=== PATIENT | male | born 1980 | race Caucasian/White ===

== ENCOUNTER → 2020-02-23 12:57 | Outpatient (CLI) | payer OTHER, SELFPAY ==
[2020-02-15 11:08] VITALS: BMI 31.1
--- NOTE | 2020-02-23 12:58 | MRI_ITS ---
STUDY: MRI CERVICAL SPINE WITHOUT CONTRAST REASON FOR EXAM: Male, 39 years old. radiculopathy, pt fell from ladder 2 mos ago, pain radiating down neck, right shoulder, right arm TECHNIQUE: Standardized fat and water weighted pulse sequences were obtained in the sagittal and axial planes. COMPARISON: None FINDINGS: Normal foramen magnum and brainstem-cervical cord junction. Normal craniovertebral junction. Normal anterior atlantoaxial articulation. Normal odontoid process. Decreased cervical lordosis. Normal vertebral bodies and posterior osseous elements. C2-3: Normal endplates. Normal disc height, signal and morphology. Normal central canal and intervertebral neural foramina. C3-4: Normal endplates. Normal disc height, signal and morphology. Normal central canal and intervertebral neural foramina. C4-5: Normal endplates. Narrowed disc space with a large central disc extrusion with inferior migration of disc fragment narrowing the central canal and compressing the cord.. Normal intervertebral neural foramina. C5-6: Normal endplates. Normal disc height, signal and tiny central disc protrusion. Normal central canal and intervertebral neural foramina. C6-7: Normal endplates. Normal disc height, signal and morphology. Normal central canal and intervertebral neural foramina. C7-T1: Normal endplates. Normal disc height, signal and morphology. Normal central canal and intervertebral neural foramina. Normal cervical cord. Normal visualized soft tissue structures. MRI/Spine Cervical (Routine) IMPRESSION: No evidence for acute fracture or other significant bony pathology. Spinal stenosis and cord compression at C5-6 secondary to a large central disc extrusion with inferior migration of disc fragment Electronically Signed: Woodrow Mandujano MD at 16:06 EST , Service support ,
== END ==
PROVIDERS: PCP Internal Medicine; Referring Provider Internal Medicine; Visit Provider Internal Medicine
DX: M54.12 Radiculopathy, cervical region (principal)
CPT/HCPCS: 72141

== ENCOUNTER → 2020-03-17 08:00 | Outpatient (CLI) | payer OTHER, SELFPAY ==
[2020-03-15 10:46] VITALS: BMI 31.4
[2020-03-17 12:29] LABS: Absolute Neutrophil Count 1.9 X10^3/uL (2.0-7.7); Basophil# 0.01 X10^3/uL; Basophil% 0.3 % (0-1); Eosinophils% 2.7 % (0-5); Hemoglobin 15.2 g/dL (13.0-16.5); Lymphocyte % 35.1 % (19-41); Mean Corpuscular Hgb 29.7 pg (27.0-32.0); Mean Corpuscular Volume 89.8 fL (80-94); Mean Platelet Vol. 11.9 fl (6.2-12.0); Monocyte# 0.36 X10^3/uL; Monocyte% 9.7 % (0-10); NRBC Flagged by Analyzer 0 % (0-5); Neutrophil # 1.93 X10^3/uL (2.7-7.7); Neutrophil % 52.2 % (47-70); Platelet Count 188 K/mm3 (150-450); RBC Distribution Width SD 42.9 fl (35.1-43.9); Red Blood Count 5.12 M/mm3 (4.6-6.2); White Blood Count 3.7 K/mm3 (4.4-11.0)
[2020-03-17 12:56] LABS: ALB/GLOB Ratio 1.3 RATIO (0.9-2.4); AST(SGOT) 14 U/L (15-37); Alanine Aminotransfer ALT/SGPT 33 U/L (16-61); Alkaline Phosphatase 67 U/L (45-117); Anion Gap 3 (5-15); BUN 13 mg/dL (7-18); Calcium,Total 8.7 mg/dL (8.5-10.1); Chloride 107 mmol/L (98-107); Cholesterol 227 mg/dL (200); EST Glomerular Filtration Rate 88 mL/min (>60); Est Glom Filt Rate - Afr Amer 107 mL/min (>60); Glucose 87 mg/dL (74-106); High Density Lipoprotein 42 mg/dL; Sodium Level 139 mmol/L (136-145); Triglycerides 136 mg/dL; Very Low Density Lipoprotein 27 mg/dL (5-40)
== END ==
PROVIDERS: PCP Internal Medicine; Referring Provider Internal Medicine; Visit Provider Internal Medicine
DX: Z13.220 Encounter for screening for lipoid disorders (principal)
CPT/HCPCS: 36415; 80053; 80061; 85025

== ENCOUNTER 2020-05-04 14:46 | Observation (INO) | payer OTHER, SELFPAY ==
[2020-03-06 08:46] VITALS: BMI 31.3
[2020-03-15 10:46] VITALS: BMI 31.4
--- NOTE | 2020-04-26 09:42 | EKG12_ITS ---
Test Reason : PRE SURGERY Blood Pressure : / mmHG Vent. Rate : 064 BPM Atrial Rate : 064 BPM P-R Int : 140 ms QRS Dur : 090 ms QT Int : 372 ms P-R-T Axes : 064 060 004 degrees QTc Int : 383 ms Normal sinus rhythm Normal ECG Confirmed by ANISH MOTA, NATHAN ([id number]), editorial manager EMILY MOLINA ([id number]) on 04/26/2020 1:29:09 PM Referred By: Guanakito Jarvis Confirmed By:NATHAN OCONNELL MD
[2020-04-26 10:43] LABS: Magnesium 2.2 mg/dL (1.6-2.6)
[2020-04-26 11:13] LABS: HIV - WCH Non-Reactive (Nonreactive)
[2020-04-27 08:08] LABS: HEPATITIS B SURFACE AG Negative (Negative); Hepatitis A AB, Total Positive (Negative); Hepatitis A IgM Antibody Negative (Negative); Hepatitis B Core AB IgM Negative (Negative); Hepatitis B Core Ab Total Negative (Negative); Hepatitis C Ab <0.1 s/co ratio (0.0-0.9)
[2020-04-28 11:53] LABS: Hep B Surface Antibodies Reactive (.)
[2020-05-04] VITALS (13 sets, daily range): BP systolic 111–132; BP diastolic 63–81; PULSE 55–72; RESP 12–18; TEMP 36.3–37.1; O2SAT 97–100; BMI 31.1
--- NOTE | 2020-05-04 06:00 | HP_ITS ---
Intake Intake Visit Reasons: cervical spine Accompanied by: Spouse Is patient in pain?: Yes (constant) Pain scale (1-10): 7 Allergies No Known Allergies Allergy (Verified 04/26/20 08:21) Medications ibuprofen 800 mg tablet 800 mg PO Q8H PRN 02/15/20 [History Confirmed 04/26/20] Montelukast [Singulair] 10 mg PO DAILY PRN 03/16/20 [History Confirmed 04/26/20] multivitamin-ferrous fumarate-folic acid 18 mg-400 mcg tablet 1 tab PO DAILY 04/26/20 [History Confirmed 04/26/20] PFS Medical History (Updated 02/15/20 @ 11:04 by Vielka Ramírez) Back problem (Acute) Arthritis (Chronic) Seasonal allergies (Chronic) Surgical History (Updated 02/15/20 @ 11:04 by Vielka Ramírez) H/O nasal septoplasty (Acute) History of knee surgery (Acute) History of vasectomy (Acute) Family History (Updated 02/15/20 @ 11:05 by Vielka Ramírez) Other Breast cancer Cancer Diabetes Myocardial infarction Social History (Updated 04/26/20 @ 09:[address] Guanakito Jarvis, ) Smoking Status: Former smoker alcohol intake: current alcohol intake frequency: a few times a month Alcohol type: beer substance use type: does not use what type of physical activity do you participate in: running, weight training frequency: 3-4 times per week HPI cervical spine: Surgical H&P: Yes Details: he comes in the company of his .Douglas is here for his preopParts of this documentation were recorded by a scribe, this documentation accurately reflects the service provided and the decisions made by me, Dr. Guanakito Jarvis DO 04/26/20 0816. DOUGLAS GARCIA is a 39 year old M here today for his pre-op appt. Needs to sign surgical consent, DOS: 05/04/2020. Denies any medical changes since last OV. Pain today is rated: 7/10 from the pain scale. Pain is described as constant. Patient brought in a summary of care forms to be filled out. Patient will call in the office later with a fax number. Douglas is here for his preop. He comes in the company of his to discuss the surgery that is due 8 days from now. Explained to him and his what the pathology was on a model showed him the level basically what we would be doing. We also spoke of possible risks and complications associated with this kind of surgery including possibility of , paralysis infection meningitis failed to relieve symptoms blood clot in the legs blood clot in the lung lungs microinfarction stroke permanent hoarseness permanent difficulty swallowing permanent All's syndrome of the tried was described among others. I answered all their questions I will see them again at surgery Assessment & Plan Problems 1. HNP (herniated nucleus pulposus), cervical M50.20 Coding Level of Care Code Off vis,est,level 2 Diagnoses HNP (herniated nucleus pulposus), cervical M50.20 Time Spent (min) 20
[2020-05-04] MEDS: Lactated Ringers 1,000 ML 100 ML IV (06:42)
[2020-05-04] MEDS: Acetaminophen 500 MG Tablet 1000 MG PO (06:51)
[2020-05-04 07:05] LABS: Bedside Glucose 83 mg/dL (70-110)
--- NOTE | 2020-05-04 07:30 | DISC_PTH ---
PATIENT: DOUGLAS GARCIA LOC: MS3 U#:[id number] AGE/SX: 39/M ROOM: [facility] RE05/04/[address]: Dr. Guanakito Jarvis DO : 1980 BED: 1 DIS: 05/05/2020 SPEC #: [id number] RECD: 05/04/20 11:49 STATUS: CHIP RETeresa #: [id number] PERICO: 05/04/20 07:[address]: Guanakito Jarvis DEPT: SURGICAL PATHOLOGY RECD BY: Qi Alonso ENTERED: 05/04/20 12:31 SP TYPE: DISC OTHR DR: Dr. Diamante Gibbons MD Tissues: Intervertebral disc, NOS Procedures: Surgery Specimen Level III HEADER OPERATION: ERAS, anterior cervical discectomy and fusion C5-C6 PRE-OP DIAGNOSIS: Cervical herniated nucleus pulposus TISSUE SUBMITTED: Disc C5-C6 MICROSCOPIC DIAGNOSIS C5-C6, discectomy: Fragments of fibrocartilaginous tissue with degenerative and reactive changes. NATHANIEL:kristine 05/05/2020 MICROSCOPIC DESCRIPTION Slides are reviewed. GROSS DESCRIPTION Received in fixative is one container labeled with the patient's name and designated disc C5-C6. The specimen consists of multiple irregular fragments of ruelas, indurated tissue that in aggregate measure 3 x 2.5 x 0.3 cm. The specimen is totally submitted in one cassette. / NATHANIEL:kristine 05/04/20 TC:5 CPT: 42264
--- NOTE | 2020-05-04 07:30 | RAD_ITS ---
STUDY: X-RAY - CERVICAL SPINE REASON FOR EXAM: Male, 39 years old. ANTERIOR CERVICAL FUSION, #2 IMAGE IN O.R. TECHNIQUE: 1 view(s) of the cervical spine were obtained. COMPARISON: Comparison is made with prior radiograph done earlier in the day. FINDINGS: The localization instrument is seen along the anterior aspect of the C6-C7 disc space level. RAD/Spine 1 View Any Level IMPRESSION: The localization instrument is seen along the anterior aspect of the C6-C7 disc space level. Electronically Signed: Leonidas Waldron MD at 9:42 EST , Service support ,
--- NOTE | 2020-05-04 07:30 | RAD_ITS ---
STUDY: X-RAY - CERVICAL SPINE REASON FOR EXAM: Male, 39 years old. SYDNEY CERVICAL DISCECTOMY AND FUSION C5-6 TECHNIQUE: 1 view(s) of the cervical spine were obtained. COMPARISON: None FINDINGS: Intraoperative localization. The metallic needle is seen along the anterior aspect of the C5-C6 disc space level. RAD/Spine 1 View Any Level IMPRESSION: Localization needle is in the anterior aspect of the C5-C6 disc space level. Electronically Signed: Leonidas Waldron MD at 9:27 EST , Service support ,
[2020-05-04] MEDS: dexAMETHasone 4 MG/ML Vial 8 MG IV (07:31)
[2020-05-04] MEDS: Cefazolin 2 GM in 0.9% Normal Saline 100 ML IV (07:35)
[2020-05-04] MEDS: Thrombin 5,000 IU Kit (PSA) 5,000 IU Vial 5000 IU (08:41)
[2020-05-04] MEDS: Heparin 10,000 UNITS/10 ML Vial 10000 UNITS (09:00)
--- NOTE | 2020-05-04 10:35 | RAD_ITS ---
STUDY: X-RAY - CERVICAL SPINE REASON FOR EXAM: Male, 39 years old. TECHNIQUE: Frontal view of the cervical spine obtained intraoperatively. COMPARISON: No relevant priors FINDINGS: Single view of the cervical spine obtained in lateral projection in the operating room reveals anterior fusion at C5-C6 with disc prosthesis. Normal alignment. RAD/Spine 1 View Any Level IMPRESSION: Intraoperative film with status post anterior fusion at C5-C6. Electronically Signed: Olivia Haro MD at 0:55 EST , Service support ,
--- NOTE | 2020-05-04 11:57 | PCM.OPRPT ---
Report of Operation Description of Surgical Findings:: Preoperative diagnosis: Herniated disc C5-6 Postoperative diagnoses: The same Procedure: #1 anterior cervical fusion C5-6 #2 insertion of bony ingrowth cage C5-6 #3 internal fixation with anterior spine plate and locking titanium screws #4 bone marrow aspirate from right iliac crest Surgeon: Dr. Jarvis dyer assistant:Noe DEAN Anesthesia: General endotracheal anesthesia administered by [facility] Estimated blood loss: Less than 20 cc Bone marrow aspirate: 60 cc Drains: 1/4 inch Nitin Complications: None Was taken to the OR where he was placed in the supine position on the operating table he was then placed under general endotracheal anesthesia. The neuro monitoring wind turbine service technician then placed all his needle leads in place. A Carmichael catheter was inserted. A preoperative x-ray was taken with a needle taped to the side of the neck to ensure that I would start the incision at the right level. Once the x-ray was taken the skin was marked with a small laceration using the end of a needle in the midline. The neck was then prepped and draped in standard fashion. I then started the incision at the predetermined point curved with longer's lines to the edge of the right sternocleidomastoid muscle. Subcutaneous tissues were incised length of the skin incision. I then split the platysma near its medial border using scissor dissection. I then began opening the fascial planes. First I exploited the superficial cervical fascia. Then we opened the pretracheal fascia. In this fashion I was able to retract the midline structures that is the trachea and the esophagus to the left the carotid sheath to the right good access to the anterior longitudinal ligament I opened the pretracheal fascia longitudinal ligament at the space thought to be C5-6. An intraoperative x-ray was taken that demonstrated the needle was marked at C6-7. I merely moved up 1 disc and used cautery to clair the center of the disc with a hole. Cloward retractors I then was able to cauterize the medial portion of the longus coli muscles on either side I gently elevated them off the disc space. The belt loop machine operator retractor was then put in place with retractors under the coli muscles on either side and then up-and-down retractors with smooth blades. Gave me good access to the disc space at C5-6. Using a 15 blade I opened the anterior annulus removed it with pituitary rongeurs I then removed more nucleus from then the disc space with pituitary rongeurs. Distractor on the right side of the interspace or space and I continue to remove disc from within the disc space note that the extruded nucleus was probably largely pulled into the through the hole in the posterior longitudinal ligament into the disc space. I removed cartilage off both endplates using curettes. The tear in the posterior annulus and posterior longitudinal ligament was apparent using sharp angled small curettes I was able to enlarge the tear in either direction. I then used several different probes to probe the area behind the C6 nerve root note that I only got a couple of pieces of free fragment out as the majority of it came in when I was pulling on the nucleus from within the disc space. This made it possible not to have to do a partial corpectomy as this would have weakened his vertebra without endplate. I then removed remaining cartilage off the endplates with curettes. I used a ketty bur to bur the anterior osteophyte at both levels. That is the bottom of 5 and the top of C6. As a sponge was done I cauterized the anterior longitudinal ligament above and below the disc space. To make room for the plate. She was were then taken with a trial we decided we would use an 8 mm cage and it was the larger of the 2 sizes. Would fill in the space nicely. Then used a 7 mm and 8 mm broach to broach the endplates into good bleeding bone thorough irrigation was then carried out and opened the 8 mm large cage note that earlier in the case we placed a Jamshidi needle into the right iliac crest and took out 60 cc of bone marrow aspirate. The wind turbine service technician in the room then used centrifuge to operate the stem cells from the plasma red cells etc. and concentrate in 8-10 times and return them to the operating table. Used spongy DBM to fill the inside of the cage and then soaked in the patient's own stem cells this was then tamped into place and countersunk a couple of millimeters. A 4 mm anterior spine plate was then used it was centered a locking pin was put in place followed by the use of the awl at all the other 3 corners followed by 16mm screws these were then placed through the locking mechanism. This was at all 4 points doing to C6 to into C5. Took a intraoperative x-ray that demonstrated excellent position of the plate the screws and the cage. An amniotic graft was then placed over the plate to prevent adhesions from forming onto the esophagus or trachea. 1/4 inch Phil Campbell drain was then inserted. Then closure was carried out first closing the platysma and running fashion with 5-0 Vicryl followed by closure of the subcutaneous tissues with 5-0 Vicryl in interrupted fashion. This approximated the skin edges and there was no need for outside stitches. The end of operative summary on Shaheen Bello.
[2020-05-04] MEDS: dexAMETHasone 4 MG/ML Vial 2 MG IV ×2 (13:58→19:49)
[2020-05-04] MEDS: Cefazolin 1 GM/50 ML BAG IV ×2 (14:39→23:15)
[2020-05-04] MEDS: traMADol 50 MG Tablet PO (14:39)
--- NOTE | 2020-05-04 15:37 | PCM.HP.STD ---
Problem List (1) S/P cervical spinal fusion Status: Acute History of Present Illness Date of Admission: 05/04/20 is a 39 year old WM with a past medical history of neck pain, arthritis, and seasonal allergies who was admitted to [facility] on 05/04/2020 for cervical fusion secondary to an HNP in the cervical spine. He underwent an anterior cervical fusion at the C5-6 segment with insertion of bony ingrowth cage at C5-6, internal fixation with anterior spine plate and locking titanium screws, and bone marrow aspirate from the right iliac crest. We have been consulted to follow in the postoperative period for any medical issues. Past Medical History Past Medical History (Chronic Problems): Chronic Problems (Last Updated 02/15/20 @ 11:04 by Vielka Ramírez) Arthritis (Chronic) Seasonal allergies (Chronic) Medical History: Medical History (Last Updated 02/15/20 @ 11:04 by Vielka Ramírez) Back problem (Acute) M53.9 Arthritis (Chronic) M19.90 Seasonal allergies (Chronic) J30.2 Allergies hydrocodone [From Vicodin] Adverse Reaction (Verified 05/04/20 06:22) Nausea Home Medications: Ambulatory Orders Medication Instructions Recorded ibuprofen 800 mg tablet 800 mg PO Q8H PRN 02/15/20 Montelukast [Singulair] 10 mg PO DAILY PRN 03/16/20 multivitamin-ferrous 1 tab PO DAILY 04/26/20 fumarate-folic acid 18 mg-400 mcg tablet Surgical History: Surgical History (Last Updated 02/15/20 @ 11:04 by Vielka Ramírez) H/O nasal septoplasty Z98.890 History of knee surgery Z98.890 History of vasectomy Z98.52 Smoking Status: Former smoker Tobacco Use: Non-smoker - Physical Exam Vitals/I&O's: Vital Signs Temp Pulse Resp BP Pulse Ox 98.5 F 68 18 132/76 H 97 05/04/20 15:01 05/04/20 15:01 05/04/20 15:01 05/04/20 15:01 05/04/20 15:01 Oxygen Flow Rate (L/min) 6 Oxygen Delivery Method Room Air Weight: 90.4 kg Body Mass Index (BMI) 31.1 Intake and Output for Last 24 Hours 05/02/20 05/03/20 05/04/20 23:59 23:59 23:59 Intake Total 215.5 / 215.5 Output Total 280 / 280 Balance -64.5 / -64.5 Microbiology Past 72 Hours 05/03/20 08:05 Interface Orders SARS-CoV-2 Antigen (Rapid) - Final Laboratory Results 05/04/20 06:16: POC Glucose 83 Current Medications Dexamethasone Sodium Phosphate (Dexamethasone 4 Mg/Ml Vial) 4 mg IV Q6H SIN; Taper Stop: 05/05/20 13:59 Last Admin: 05/04/20 13:58 Dose: 4 mg Documented by: Enteral Nutritional Formula (Ensure Surgery 237 Ml Liquid) 237 ml PO TIDCM SIN Famotidine (Famotidine 20 Mg Tablet) 20 mg PO BID SNI Lactated Ringer's () 1,000 mls @ 100 mls/hr IV .Q10H SIN Last Admin: 05/04/20 06:42 Dose: 100 mls/hr Documented by: Lactated Ringer's () 1,000 mls @ 100 mls/hr IV .Q10H SIN Cefazolin Sodium () 1 gm in 50 mls @ 100 mls/hr IV Q8H SIN Stop: 05/04/20 23:59 Last Admin: 05/04/20 14:39 Dose: 100 mls/hr Documented by: Insulin Human Lispro (Insulin Lispro 100 Unit/Ml Insuln.Pen) 1 - 6 unit SC Q4H PRN PRN; Protocol PRN Reason: BG>/= 180, SEE PROTOCOL Stop: 05/04/20 18:00 Morphine Sulfate (Morphine 4 Mg/Ml Syringe) 2 - 4 mg IV Q2H PRN PRN PRN Reason: Pain Score 6-10 Ondansetron HCl (Ondansetron 4 Mg/2 Ml Vial) 4 mg IV Q8H PRN PRN PRN Reason: NAUSEA Senna/Docusate Sodium (Senna/Docusate Sodium 1 Tablet) 2 tablet PO BID SIN Sodium Chloride (0.9% Nacl Peripheral Flush Adult/Peds) 5 - 15 ml IV UD PRN PRN Reason: SALINE FLUSH Sodium Chloride (0.9% Saline Lock 10 Ml Syringe) 10 - 40 ml IV UD PRN PRN Reason: SALINE FLUSH Tramadol HCl (Tramadol 50 Mg Tablet) 50 - 100 mg PO Q6H PRN PRN PRN Reason: Pain Score 4-5 Last Admin: 05/04/20 14:39 Dose: 100 mg Documented by: Assessment/Plan All Active Problems (Last Updated 02/15/20 @ 11:04 by Vielka Ramírez) S/P cervical spinal fusion (Acute) Back problem (Acute)
--- NOTE | 2020-05-04 15:55 | PCM.PN.HOSP ---
Subjective: is a 39 year old WM with a past medical history of neck pain, arthritis, and seasonal allergies who was admitted to [facility] on 05/04/2020 for cervical fusion secondary to an HNP in the cervical spine. He underwent an anterior cervical fusion at the C5-6 segment with insertion of bony ingrowth cage at C5-6, internal fixation with anterior spine plate and locking titanium screws, and bone marrow aspirate from the right iliac crest. We have been consulted to follow in the postoperative period for any medical issues. Patient currently states his pain is fairly well controlled. His Carmichael was removed and he states he is urinating with a little bit of hesitancy and burning, but was able to urinate. Vitals/I&O's: Vital Signs Temp Pulse Resp BP Pulse Ox 98.5 F 68 18 132/76 H 97 05/04/20 15:01 05/04/20 15:01 05/04/20 15:01 05/04/20 15:01 05/04/20 15:01 Oxygen Flow Rate (L/min) 6 Oxygen Delivery Method Room Air Weight: 90.4 kg Body Mass Index (BMI) 31.1 Intake and Output for Last 24 Hours 05/02/20 05/03/20 05/04/20 23:59 23:59 23:59 Intake Total 215.5 / 215.5 Output Total 280 / 280 Balance -64.5 / -64.5 General: Alert, Oriented x3, Cooperative, No apparent distress, Well developed, Well nourished, - - Middle-aged white male sitting up in a chair with soft neck collar in place, at bedside Oral: Moist Mucosa, No Gingival or Mucosal Lesions/ Ulcerations, - - Mallampati 3 Lungs: Clear to auscultation, Normal air movement, No rhonchi, No wheeze, No rales Cardiovascular: Regular rate, Regular Rhythm, Normal S1, Normal S2, No murmurs, No Ectopic Activity, No rub noted, No Gallop Abdomen: Bowel Sounds Present, Soft, Non Tender, Non-Distended Extremities: No clubbing, No cyanosis, No edema, Capillary Refill Less than 3 Seconds, Peripheral Pulses Normal Neurological: Cranial nerves II-XII grossly intact, Deep Tendon Reflexes 2+/4 and Symmetrical, Neuro grossly intact, Muscle tone normal, Coordination normal Psych/Mental Status: Normal Affect, Appropriate Microbiology Past 72 Hours 05/03/20 08:05 Interface Orders SARS-CoV-2 Antigen (Rapid) - Final Laboratory Results 05/04/20 06:16: POC Glucose 83 Current Medications Dexamethasone Sodium Phosphate (Dexamethasone 4 Mg/Ml Vial) 4 mg IV Q6H SIN; Taper Stop: 05/05/20 13:59 Last Admin: 05/04/20 13:58 Dose: 4 mg Documented by: Enteral Nutritional Formula (Ensure Surgery 237 Ml Liquid) 237 ml PO TIDCM SIN Famotidine (Famotidine 20 Mg Tablet) 20 mg PO BID SIN Lactated Ringer's () 1,000 mls @ 100 mls/hr IV .Q10H SIN Last Admin: 05/04/20 06:42 Dose: 100 mls/hr Documented by: Lactated Ringer's () 1,000 mls @ 100 mls/hr IV .Q10H SIN Cefazolin Sodium () 1 gm in 50 mls @ 100 mls/hr IV Q8H SIN Stop: 05/04/20 23:59 Last Admin: 05/04/20 14:39 Dose: 100 mls/hr Documented by: Insulin Human Lispro (Insulin Lispro 100 Unit/Ml Insuln.Pen) 1 - 6 unit SC Q4H PRN PRN; Protocol PRN Reason: BG>/= 180, SEE PROTOCOL Stop: 05/04/20 18:00 Morphine Sulfate (Morphine 4 Mg/Ml Syringe) 2 - 4 mg IV Q2H PRN PRN PRN Reason: Pain Score 6-10 Ondansetron HCl (Ondansetron 4 Mg/2 Ml Vial) 4 mg IV Q8H PRN PRN PRN Reason: NAUSEA Senna/Docusate Sodium (Senna/Docusate Sodium 1 Tablet) 2 tablet PO BID SIN Sodium Chloride (0.9% Nacl Peripheral Flush Adult/Peds) 5 - 15 ml IV UD PRN PRN Reason: SALINE FLUSH Sodium Chloride (0.9% Saline Lock 10 Ml Syringe) 10 - 40 ml IV UD PRN PRN Reason: SALINE FLUSH Tramadol HCl (Tramadol 50 Mg Tablet) 50 - 100 mg PO Q6H PRN PRN PRN Reason: Pain Score 4-5 Last Admin: 05/04/20 14:39 Dose: 100 mg Documented by: STROKE Vital Signs/Narrative: Vital Signs Temp Pulse Resp BP Pulse Ox 05/04/20 15:01 98.5 F 68 18 132/76 H 97 05/04/20 14:07 98.7 F 72 16 119/74 97 05/04/20 12:59 97.8 F 60 16 121/76 H 100 05/04/20 12:51 61 16 113/74 100 05/04/20 12:33 57 L 16 119/79 100 05/04/20 12:16 63 16 129/78 H 100 05/04/20 12:02 57 L 16 123/81 H 100 Medical Necessity - Tobacco Use Smoking Status: Former smoker Tobacco Use: Non-smoker Assessment/Plan All Active Problems (Last Updated 02/15/20 @ 11:04 by Vielka Ramírez) S/P cervical spinal fusion (Acute) Back problem (Acute) H&P C5-6 that is post anterior fusion -Continue Ultram, as needed morphine -Continue Decadron taper -Nitin drain management per primary -As needed Zofran -Continue stool softener -Add as needed MiraLAX -Therapy services as per primary Seasonal allergies -Continue Singulair DVT prophylaxis -SCDs while in bed Inpatient E&M: 73897 Subs Hosp L2
[2020-05-04] MEDS: 0.9% NaCl Peripheral Flush Adult/Peds IV ×3 (17:38→23:22)
[2020-05-04] MEDS: Morphine 4 MG/ML Syringe IV ×2 (17:38→23:22)
[2020-05-04] MEDS: Ensure Surgery 237 ML LIQUID PO (17:43)
[2020-05-04] MEDS: Senna/Docusate Sodium 1 Tablet 2 TABLET PO (23:15)
[2020-05-04] MEDS: Famotidine 20 MG Tablet PO (23:15)
[2020-05-05] MEDS: dexAMETHasone 4 MG/ML Vial 2 MG IV ×2 (02:08→09:10)
[2020-05-05] MEDS: 0.9% NaCl Peripheral Flush Adult/Peds IV ×3 (02:09→09:10)
[2020-05-05 03:10] VITALS: BP 117/69; PULSE 63; RESP 16; TEMP 36.6; O2SAT 97
[2020-05-05] MEDS: traMADol 50 MG Tablet PO ×3 (03:10→15:18)
[2020-05-05 07:00] VITALS: BP 114/62; PULSE 62; RESP 16; TEMP 36.6; O2SAT 96
[2020-05-05] MEDS: Morphine 4 MG/ML Syringe IV (07:12)
[2020-05-05 07:23] VITALS: BP 117/69; PULSE 69; RESP 16; TEMP 36.7; O2SAT 96
[2020-05-05 07:25] VITALS: RESP 16; O2SAT 96
--- NOTE | 2020-05-05 07:37 | PN_ITS ---
Objective: Afebrile. Blood pressure and heart rate in normal range. Vitals/I&O's: Vital Signs Temp Pulse Resp BP Pulse Ox 98.1 F 69 16 117/69 96 05/05/20 07:23 05/05/20 07:23 05/05/20 07:25 05/05/20 07:23 05/05/20 07:25 Oxygen Flow Rate (L/min) 6 Oxygen Delivery Method Room Air Weight: 199 lb 4.766 oz Body Mass Index (BMI) 31.1 Intake and Output for Last 24 Hours 05/03/20 05/04/20 05/05/20 23:59 23:59 23:59 Intake Total 2065.5 / 2065.5 50 / 50 Output Total 705 / 705 Balance 1360.5 / 1360.5 50 / 50 Microbiology Past 72 Hours 05/03/20 08:05 Interface Orders SARS-CoV-2 Antigen (Rapid) - Final Current Medications Dexamethasone Sodium Phosphate (Dexamethasone 4 Mg/Ml Vial) 2 mg IV Q6H [facility]; Taper Stop: 05/05/20 13:59 Last Admin: 05/05/20 02:08 Dose: 2 mg Documented by: Enteral Nutritional Formula (Ensure Surgery 237 Ml Liquid) 237 ml PO TIDCM [facility] Last Admin: 05/04/20 17:43 Dose: 237 ml Documented by: Famotidine (Famotidine 20 Mg Tablet) 20 mg PO BID [facility] Last Admin: 05/04/20 23:15 Dose: 20 mg Documented by: Morphine Sulfate (Morphine 4 Mg/Ml Syringe) 2 - 4 mg IV Q2H PRN PRN PRN Reason: Pain Score 6-10 Last Admin: 05/05/20 07:12 Dose: 2 mg Documented by: Ondansetron HCl (Ondansetron 4 Mg/2 Ml Vial) 4 mg IV Q8H PRN PRN PRN Reason: NAUSEA Polyethylene Glycol (Polyethylene Glycol 3350 17 Gm Packet) 17 gm PO PRN PRN PRN Reason: Constipation Senna/Docusate Sodium (Senna/Docusate Sodium 1 Tablet) 2 tablet PO BID [facility] Last Admin: 05/04/20 23:15 Dose: 2 tablet Documented by: Sodium Chloride (0.9% Nacl Peripheral Flush Adult/Peds) 5 - 15 ml IV UD PRN PRN Reason: SALINE FLUSH Last Admin: 05/05/20 07:13 Dose: 10 ml Documented by: Sodium Chloride (0.9% Saline Lock 10 Ml Syringe) 10 - 40 ml IV UD PRN PRN Reason: SALINE FLUSH Tramadol HCl (Tramadol 50 Mg Tablet) 50 - 100 mg PO Q6H PRN PRN PRN Reason: Pain Score 4-5 Last Admin: 05/05/20 03:10 Dose: 100 mg Documented by: STROKE Vital Signs/Narrative: Vital Signs Temp Pulse Resp BP Pulse Ox 05/05/20 07:25 16 96 05/05/20 07:23 98.1 F 69 16 117/69 96 05/05/20 07:00 97.8 F 62 16 114/62 96 Medical Necessity - Tobacco Use Smoking Status: Former smoker Tobacco Use: Non-smoker Assessment/Plan All Active Problems (Last Updated 02/15/20 @ 11:04 by Vielka Ramírez) S/P cervical spinal fusion (Acute) Back problem (Acute)
[2020-05-05] MEDS: Senna/Docusate Sodium 1 Tablet 2 TABLET PO (09:10)
[2020-05-05] MEDS: Famotidine 20 MG Tablet PO (09:10)
[2020-05-05] MEDS: Ensure Surgery 237 ML LIQUID PO ×2 (09:10→11:42)
[2020-05-05 11:28] VITALS: BP 127/74; PULSE 77; RESP 16; TEMP 36.6; O2SAT 95
[2020-05-05 13:36] VITALS: BP 124/76; PULSE 81; RESP 16; TEMP 37; O2SAT 95
--- NOTE | 2020-05-05 14:22 | PN_ITS ---
Objective: Patient was seen and examined. Had cervical spine surgery through anterior approach. Mild pain about 5-6/10 intensity. Heart rate and blood pressure are in normal range. Physical exam General: Alert, Oriented x3, Cooperative HEENT: Atraumatic, PERRLA, EOMI, Normocephalic Oral: No Gingival or Mucosal Lesions/ Ulcerations Neck: Cervical collar around neck. Dressing over the anterior aspect of the neck is dry. Supple, No JVD, Negative Carotid Bruits Lungs: Air entry equal in bilateral lung bases. No crepitation/rhonchi Cardiovascular: Regular rate, Regular Rhythm, Normal S1, Normal S2, No murmurs Abdomen: Bowel Sounds Present, Soft, Non Tender, Non-Distended : No renal angle tenderness. No suprapubic tenderness. Extremities: No edema, Capillary Refill Less than 3 Seconds Skin: No rashes, No breakdown Musculoskeletal: No Tenderness to Palpation of Joints or Extremities Neurological: Cranial nerves II-XII grossly intact, Deep Tendon Reflexes 2+/4 and Symmetrical, Neuro grossly intact Psych/Mental Status: Normal Affect, Appropriate. Vitals/I&O's: Vital Signs Temp Pulse Resp BP Pulse Ox 98.6 F 81 16 124/76 H 95 05/05/20 13:36 05/05/20 13:36 05/05/20 13:36 05/05/20 13:36 05/05/20 13:36 Oxygen Flow Rate (L/min) 6 Oxygen Delivery Method Room Air Weight: 199 lb 4.766 oz Body Mass Index (BMI) 31.1 Intake and Output for Last 24 Hours 05/03/20 05/04/20 05/05/20 23:59 23:59 23:59 Intake Total 2065.5 / 2065.5 850 / 850 Output Total 705 / 705 Balance 1360.5 / 1360.5 850 / 850 Microbiology Past 72 Hours 05/03/20 08:05 Interface Orders SARS-CoV-2 Antigen (Rapid) - Final Current Medications Enteral Nutritional Formula (Ensure Surgery 237 Ml Liquid) 237 ml PO TIDCM [facility] Last Admin: 05/05/20 11:42 Dose: 237 ml Documented by: Famotidine (Famotidine 20 Mg Tablet) 20 mg PO BID [facility] Last Admin: 05/05/20 09:10 Dose: 20 mg Documented by: Morphine Sulfate (Morphine 4 Mg/Ml Syringe) 2 - 4 mg IV Q2H PRN PRN PRN Reason: Pain Score 6-10 Last Admin: 05/05/20 07:12 Dose: 2 mg Documented by: Ondansetron HCl (Ondansetron 4 Mg/2 Ml Vial) 4 mg IV Q8H PRN PRN PRN Reason: NAUSEA Polyethylene Glycol (Polyethylene Glycol 3350 17 Gm Packet) 17 gm PO PRN PRN PRN Reason: Constipation Senna/Docusate Sodium (Senna/Docusate Sodium 1 Tablet) 2 tablet PO BID [facility] Last Admin: 05/05/20 09:10 Dose: 2 tablet Documented by: Sodium Chloride (0.9% Nacl Peripheral Flush Adult/Peds) 5 - 15 ml IV UD PRN PRN Reason: SALINE FLUSH Last Admin: 05/05/20 09:10 Dose: 10 ml Documented by: Sodium Chloride (0.9% Saline Lock 10 Ml Syringe) 10 - 40 ml IV UD PRN PRN Reason: SALINE FLUSH Tramadol HCl (Tramadol 50 Mg Tablet) 50 - 100 mg PO Q6H PRN PRN PRN Reason: Pain Score 4-5 Last Admin: 05/05/20 09:25 Dose: 100 mg Documented by: STROKE Vital Signs/Narrative: Vital Signs Temp Pulse Resp BP Pulse Ox 05/05/20 13:36 98.6 F 81 16 124/76 H 95 05/05/20 11:28 97.8 F 77 16 127/74 H 95 Medical Necessity - Tobacco Use Smoking Status: Former smoker Tobacco Use: Non-smoker Assessment/Plan All Active Problems (Last Updated 02/15/20 @ 11:04 by Vielka Ramírez) S/P cervical spinal fusion (Acute) Back problem (Acute) This 39-year-old gentleman admitted for cervical spine surgery. 1. Herniated disc C5-C6: Patient had C5-C6 anterior fusion, internal fixation with anterior spinal plate and locking titanium screws and bone marrow aspirate from right iliac crest. Pain control. This was mainly traumatic when the patient fell down from 10 to 15 feet height while working. 2. Patient has mild seasonal allergies and is on Singulair 3. Recent hepatitis A: Hepatitis A IgM is negative but antibody total is positive therefore hepatitis A IgG is positive.: ALT and AST are normal on 03/17/2020. TB 0.6. Alkaline phosphatase 67. Patient is currently stable for discharge. Inpatient E&M: 41493 Subs Hosp L2
--- NOTE | 2020-05-05 14:24 | PCM.DC.SUM ---
Discharge Date and Diagnosis Date of Admission: 05/04/20 Date of Discharge: 05/05/20 - Secondary Discharge Diagnosis Chronic Problems: Chronic Problems (Last Updated 02/15/20 @ 11:04 by Vielka Ramírez) Arthritis (Chronic) Seasonal allergies (Chronic) Hospital Course and Treatment Summary of Care Provided: The patient is a 39 year old M [] - Physical Exam Vitals/I&O's: Vital Signs Temp Pulse Resp BP Pulse Ox 98.6 F 81 16 124/76 H 95 05/05/20 13:36 05/05/20 13:36 05/05/20 13:36 05/05/20 13:36 05/05/20 13:36 Oxygen Flow Rate (L/min) 6 Oxygen Delivery Method Room Air Weight: 199 lb 4.766 oz Body Mass Index (BMI) 31.1 Intake and Output for Last 24 Hours 05/03/20 05/04/20 05/05/20 23:59 23:59 23:59 Intake Total 2065.5 / 2065.5 850 / 850 Output Total 705 / 705 Balance 1360.5 / 1360.5 850 / 850 Microbiology Past 72 Hours 05/03/20 08:05 Interface Orders SARS-CoV-2 Antigen (Rapid) - Final Current Medications Enteral Nutritional Formula (Ensure Surgery 237 Ml Liquid) 237 ml PO TIDCM [facility] Last Admin: 05/05/20 11:42 Dose: 237 ml Documented by: Famotidine (Famotidine 20 Mg Tablet) 20 mg PO BID [facility] Last Admin: 05/05/20 09:10 Dose: 20 mg Documented by: Morphine Sulfate (Morphine 4 Mg/Ml Syringe) 2 - 4 mg IV Q2H PRN PRN PRN Reason: Pain Score 6-10 Last Admin: 05/05/20 07:12 Dose: 2 mg Documented by: Ondansetron HCl (Ondansetron 4 Mg/2 Ml Vial) 4 mg IV Q8H PRN PRN PRN Reason: NAUSEA Polyethylene Glycol (Polyethylene Glycol 3350 17 Gm Packet) 17 gm PO PRN PRN PRN Reason: Constipation Senna/Docusate Sodium (Senna/Docusate Sodium 1 Tablet) 2 tablet PO BID [facility] Last Admin: 05/05/20 09:10 Dose: 2 tablet Documented by: Sodium Chloride (0.9% Nacl Peripheral Flush Adult/Peds) 5 - 15 ml IV UD PRN PRN Reason: SALINE FLUSH Last Admin: 05/05/20 09:10 Dose: 10 ml Documented by: Sodium Chloride (0.9% Saline Lock 10 Ml Syringe) 10 - 40 ml IV UD PRN PRN Reason: SALINE FLUSH Tramadol HCl (Tramadol 50 Mg Tablet) 50 - 100 mg PO Q6H PRN PRN PRN Reason: Pain Score 4-5 Last Admin: 05/05/20 09:25 Dose: 100 mg Documented by: Home Medications: Medications to take at Discharge Montelukast [Singulair] 10 mg PO DAILY PRN 03/16/20 multivitamin-ferrous fumarate-folic acid 18 mg-400 mcg tablet 1 tab PO DAILY 04/26/20 Primary Care Physician: Diamante Gibbons MD [Primary Care Provider] - Medical Necessity - Tobacco Use Smoking Status: Former smoker Tobacco Use: Non-smoker Meaningful Use Info Meaningful Use Diagnoses (Choose all that apply): None applicable
--- NOTE | 2020-05-05 14:29 | DCINST_ITS ---
Discharge Diet: No Restrictions Discharge Activity: May Not Drive May shower in (days): 4 May resume sexual activity in: 10-14 days Weight Bearing Status: Full weight bearing Call your doctor if your incision/area has: Continuous Slow Oozing, Increased Pain/ Swelling Call your doctor if you observe: Fever of 101 or Higher, Calf discomfort Cleanse incision/area with: Soap & Water Allergies/Adverse Reactions: Allergies hydrocodone [From Vicodin] Adverse Reaction (Verified 05/04/20 06:22) Nausea Medications to take at Discharge Montelukast [Singulair] 10 mg PO DAILY PRN 03/16/20 multivitamin-ferrous fumarate-folic acid 18 mg-400 mcg tablet 1 tab PO DAILY 04/26/20 Primary Care Physician: Diamante Gibbons MD [Primary Care Provider] - Test Results: Test results from this visit will be discussed in further detail at your follow- up appointment, if applicable. Please Follow Up With: Dr Jarvis When: already scheduled Proposed Discharge Date: 05/05/20
== END 2020-05-05 15:54 | disposition home or self-care (01) ==
LOC: SDC 15:04 → MS3 15:04
PROVIDERS: Anesthesiology; Admitting Provider Orthopaedic Surgery; PCP Internal Medicine; Referring Provider Orthopaedic Surgery; Visit Provider Orthopaedic Surgery
PROC: (CPT 22551; principal; 2020-05-04 07:00)
DX: M50.222 Other cervical disc displacement at C5-C6 level (principal); M19.90 Unspecified osteoarthritis, unspecified site; Z87.891 Personal history of nicotine dependence; Z20.828 Contact with and (suspected) exposure to other viral communicable diseases; F43.10 Post-traumatic stress disorder, unspecified; J30.2 Other seasonal allergic rhinitis; Z86.19 Personal history of other infectious and parasitic diseases
CPT/HCPCS: 20939; 22551; 22845; 22853; 36415; 72020; 82962; 83735; 86703; 86704; 86705; 86706; 86708; 86709; 86803; 87077; 87081; 87340; 87426; 88304; 93005; 96361; 96365; 96366; 96375; 96376; 99218; C1713; C9803; J7120; A4216; G0378; G0379; J2405

== ENCOUNTER → 2020-05-30 12:08 | Outpatient (CLI) | payer OTHER, SELFPAY ==
[2020-05-30 11:36] VITALS: BMI 31.4
[2020-05-30 15:21] LABS: Absolute Lymphocyte Count 1.31 X10^3/uL (0.83-4.51); Absolute Neutrophil Count 3.2 X10^3/uL (2.0-7.7); Basophil# 0.02 X10^3/uL; Basophil% 0.4 % (0-1); Hematocrit 46.7 % (40-54); Hemoglobin 15.2 g/dL (13.0-16.5); Lymphocyte # 1.31 X10^3/ul (4.0); Mean Corp Hgb Conc 32.5 g/dL (32-36); Mean Corpuscular Hgb 29.3 pg (27.0-32.0); Mean Corpuscular Volume 90.2 fL (80-94); Mean Platelet Vol. 11.9 fl (6.2-12.0); Monocyte# 0.41 X10^3/uL; Monocyte% 8.1 % (0-10); NRBC Flagged by Analyzer 0 % (0-5); Neutrophil # 3.19 X10^3/uL (2.7-7.7); Neutrophil % 63.3 % (47-70); Platelet Count 236 K/mm3 (150-450); RBC Distribution Width CV 12.7 % (11.6-14.6); RBC Distribution Width SD 41.8 fl (35.1-43.9); Red Blood Count 5.18 M/mm3 (4.6-6.2)
[2020-05-30 15:42] LABS: ALB/GLOB Ratio 1.1 RATIO (0.9-2.4); AST(SGOT) 18 U/L (15-37); Alanine Aminotransfer ALT/SGPT 53 U/L (16-61); Alkaline Phosphatase 99 U/L (45-117); Anion Gap 6 (5-15); BUN 9 mg/dL (7-18); BUN/Creat Ratio 9.4 RATIO (10-20); Calcium,Total 9.3 mg/dL (8.5-10.1); Chloride 106 mmol/L (98-107); Creatinine, Serum 0.96 mg/dL (0.70-1.30); EST Glomerular Filtration Rate 93 mL/min (>60); Est Glom Filt Rate - Afr Amer 112 mL/min (>60); Globulin 3.5 g/dL (2.2-4.2); Glucose 87 mg/dL (74-106); Potassium 3.9 mmol/L (3.5-5.1); Protein, Total 7.5 g/dL (6.4-8.2); Sodium Level 141 mmol/L (136-145)
[2020-05-30 15:43] LABS: Erythrocyte Sedimentation Rate 4 mm/hr (0-20)
== END ==
PROVIDERS: PCP Internal Medicine; Referring Provider Internal Medicine; Visit Provider Internal Medicine
DX: R10.32 Left lower quadrant pain (principal)
CPT/HCPCS: 36415; 80053; 85025; 85652

== ENCOUNTER → 2020-06-02 07:23 | Outpatient (CLI) | payer OTHER, SELFPAY ==
[2020-05-30 11:36] VITALS: BMI 31.4
--- NOTE | 2020-06-02 07:26 | CT_ITS ---
EXAM: CT ABDOMEN AND PELVIS WITH INTRAVENOUS CONTRAST CLINICAL INDICATION: left lower quadrant, right lower quadrant pain -- blq pain, left greater than right. divertic vs alysa TECHNIQUE: Helically acquired images were obtained of the abdomen and pelvis with intravenous contrast. This CT exam was performed using one or more of the following dose reduction techniques: automated exposure control, adjustment of the mA and/or kV according to patient size, and/or use of iterative reconstruction technique. This report was created using [employer] report generation technology. Oral contrast was administered. Coronal and sagittal reformatted images were created and reviewed. CONTRAST: Oral and amp; IV Readi-CAT and amp; 100mL Isovue-300 COMPARISON: None. FINDINGS: LOWER THORAX: Unremarkable. Lung bases are clear. No cardiomegaly. No significant pericardial effusion. ABDOMEN: LIVER: Unremarkable. Homogeneous. No focal mass. GALLBLADDER AND BILE DUCTS: Unremarkable. No calcified gallstones. No gallbladder distention or wall edema. No intra- or extrahepatic biliary ductal dilation. PANCREAS: Unremarkable. No focal cystic or solid mass. SPLEEN: Unremarkable. Normal size without focal cystic or solid mass. ADRENALS: Unremarkable. No nodules. KIDNEYS AND URETERS: Unremarkable. Normal renal size and position. No hydronephrosis. STOMACH AND BOWEL: Slight stranding adjacent to the distal descending colon (image 43 series 601) without significant adjacent colon wall thickening. There are scattered diverticula. No stomach or bowel distention. PELVIS: APPENDIX: No evidence of acute appendicitis. BLADDER: Unremarkable. REPRODUCTIVE: Unremarkable as visualized. No mass. ABDOMEN and PELVIS: INTRAPERITONEAL SPACE: Unremarkable. No ascites or other fluid collection. No free air. BONES/JOINTS: Unremarkable. No suspicious lytic or blastic abnormality. SOFT TISSUES: Very small periumbilical fat-containing hernia.. No discrete abdominal or pelvic wall hernia. VASCULATURE: Unremarkable. Abdominal aorta is non-dilated. LYMPH NODES: Reactive lymph nodes of the mesentery root but no dominant suhas mass. CT/Abdomen/Pelvis WITH Contrast IMPRESSION: Minimal pericolonic stranding in the LEFT lower quadrant adjacent to distal descending colon suggesting early/minimal diverticulitis or colitis. No significant colon wall thickening, abscess or pneumoperitoneum. Electronically Signed: Daron Sanford MD ([place]) at 7:53 EDT , Service support ,
== END ==
PROVIDERS: PCP Internal Medicine; Referring Provider Internal Medicine; Visit Provider Internal Medicine
DX: R10.32 Left lower quadrant pain (principal); R10.31 Right lower quadrant pain
CPT/HCPCS: 74177; Q9967

== ENCOUNTER 2021-01-16 14:56 | Outpatient (CLI) | payer OTHER, SELFPAY ==
[2021-01-16 15:17] VITALS: BP 128/60; PULSE 72; RESP 16; TEMP 36.6; O2SAT 98; BMI 29.1
[2021-01-16] MEDS: 0.9% Saline Lock 10 ML Syringe IV (15:24)
[2021-01-16 16:23] VITALS: BP 108/51; PULSE 60; RESP 16; TEMP 36.6; O2SAT 99
[2021-01-16 17:13] VITALS: BP 107/55; PULSE 56; RESP 16; TEMP 36.6; O2SAT 98
== END 2021-01-16 17:15 | disposition home or self-care (01) ==
LOC: MS3OUT 15:01 → MS3 15:02
PROVIDERS: PCP Internal Medicine; Referring Provider Nurse Practitioner Adult Health; Visit Provider Nurse Practitioner Adult Health
DX: Z23 Encounter for immunization (principal); U07.1 COVID-19
CPT/HCPCS: J7050; M0245; Q0245; A4216

== ENCOUNTER → 2021-01-16 | Outpatient (CLI) | payer OTHER, SELFPAY | END | disposition home or self-care (01) | LOC: LABSPEC 10:32 | PROVIDERS: PCP Internal Medicine; Visit Provider Physician Assistant | DX: U07.1 COVID-19 (principal) | CPT/HCPCS: 87635; U0005; U0003 ==

== ENCOUNTER 2021-05-30 11:21 | Outpatient (CLI) | payer OTHER, SELFPAY ==
[2021-05-30 12:25] LABS: Absolute Lymphocyte Count 2.07 X10^3/uL (0.83-4.51); Absolute Neutrophil Count 5.5 X10^3/uL (2.0-7.7); Basophil# 0.01 X10^3/uL; Basophil% 0.1 % (0-1); Eosinophil# 0.08 X10^3/uL; Hematocrit 46.7 % (40-54); Hemoglobin 15.6 g/dL (13.0-16.5); Lymphocyte # 2.07 X10^3/ul (0.83-4.51); Mean Corp Hgb Conc 33.4 g/dL (32-36); Mean Corpuscular Hgb 30.2 pg (27.0-32.0); Mean Corpuscular Volume 90.3 fL (80-94); Mean Platelet Vol. 10.9 fl (6.2-12.0); Monocyte# 0.61 X10^3/uL; Monocyte% 7.4 % (0-10); NRBC Flagged by Analyzer 0 % (0-5); Neutrophil # 5.48 X10^3/uL (2.7-7.7); Platelet Count 230 K/mm3 (150-450); RBC Distribution Width CV 12.8 % (11.6-14.6); RBC Distribution Width SD 42.1 fl (35.1-43.9); Red Blood Count 5.17 M/mm3 (4.6-6.2); White Blood Count 8.3 K/mm3 (4.4-11.0)
[2021-05-30 12:41] LABS: Hemoglobin A1c 5.3 % (3.8-5.6)
[2021-05-30 12:45] LABS: Vitamin D,25 Hydroxy 21.5 ng/mL
[2021-05-30 12:58] LABS: ALB/GLOB Ratio 1.3 RATIO (0.9-2.4); AST(SGOT) 11 U/L (15-37); Alanine Aminotransfer ALT/SGPT 37 U/L (16-61); Alkaline Phosphatase 78 U/L (45-117); Anion Gap 6 (5-15); BUN 15 mg/dL (7-18); BUN/Creat Ratio 17.4 RATIO (10-20); Calcium,Total 8.9 mg/dL (8.5-10.1); Chloride 102 mmol/L (98-107); Cholesterol 207 mg/dL (200); Creatinine, Serum 0.86 mg/dL (0.70-1.30); EST Glomerular Filtration Rate 104 mL/min (>60); Est Glom Filt Rate - Afr Amer 126 mL/min (>60); Globulin 3.1 g/dL (2.2-4.2); Glucose 89 mg/dL (74-106); High Density Lipoprotein 54 mg/dL; Potassium 3.7 mmol/L (3.5-5.1); Protein, Total 7.1 g/dL (6.4-8.2); Sodium Level 139 mmol/L (136-145); Thyroid Stim Hormone (TSH) 1.35 uIU/mL (0.358-3.74); Triglycerides 206 mg/dL; Very Low Density Lipoprotein 41 mg/dL (5-40)
== END 2021-05-30 23:59 | disposition home or self-care (01) ==
LOC: BIMLAB 11:22
PROVIDERS: PCP Internal Medicine; Referring Provider Internal Medicine; Visit Provider Internal Medicine
DX: M19.90 Unspecified osteoarthritis, unspecified site (principal); J30.2 Other seasonal allergic rhinitis; Z13.1 Encounter for screening for diabetes mellitus; E55.9 Vitamin D deficiency, unspecified
CPT/HCPCS: 36415; 80053; 80061; 82306; 83036; 84153; 84443; 85025; G0103

== ENCOUNTER → 2021-07-30 | Outpatient (CLI) | payer OTHER, SELFPAY | END | disposition home or self-care (01) | LOC: SL 10:19 | PROVIDERS: PCP Internal Medicine; Visit Provider Internal Medicine | DX: R06.83 Snoring (principal); R06.81 Apnea, not elsewhere classified; G47.30 Sleep apnea, unspecified | CPT/HCPCS: 95806 ==

== ENCOUNTER 2021-08-03 09:00 | Outpatient (RCR) | payer OTHER, SELFPAY ==
--- NOTE | 2021-07-06 10:24 | HP.PTEVAL ---
Patient's Visit Information DOUGLAS GARCIA is a 40 year old M referred to Physical Therapy by DIANNE Raymond with a diagnosis of L knee pain. Date of Evaluation: 07/06/21 Physical Therapist: Jaskaran Leonardo, PT, ATC - Visit Plan Frequency: 2-3x /Week Duration: 4 Weeks Plan: L LE stretching (HS's, IT band), foam roller, core strengthening, bike, and HEP - Subjective Pt reports he has been training for a 50 mile race and started to have L knee pain. Pt reports the pain is located on the lateral aspect of his L knee. Pt notes he has done his research and believes it is the fatty pad under his IT band. Pt reports the pain has been occurring over the last month and a half. Pt reports his race in August 11, and his goal is to be able to run it for armando purposes. Pt denies any L LE tingling or numbness at this time. Pt denies sleep difficulty secondary to pain. Pt reports the pain is only present when he is walking unless he is palpating for the pain. 2/10 pain at rest, 9/10 pain at worst (after he has been running) - Pain L Lateral knee pain Pain Intensity (Out of 10): 2 Pain Intensity Range: 9 - Objective Neuro: B LE sensation is WNL to light touch. B patellar reflex= 2/3. Palpation: Pt is sore along the distal L IT band. No obvious deformity at this time. ROM: R knee 0-130 degrees, L knee 0-130. MMT: R knee flex= 29, ext= 31; L knee flex= 31, ext= 35 #F. Special test: pos 90/90 (45 degree lag), IT band and quad tightness - Balance/Special Test Scores Lower Extremity Functional Score: 57 - Goals Goal 1:: I with HEP Goal Time Frame: 4-6 Weeks Goal 2:: Increase core stability x 1 grade to aid with decreasing L LE pain Goal Time Frame: 4-6 Weeks Goal 3:: Increase L LE flexibility x 15 degrees to aid with decreasing L LE pain Goal Time Frame: 4-6 Weeks - Rehabilitation Potential Physical Therapy Diagnosis: L knee pain secondary to limited flexibility of L LE Rehabilitation Potential: Good - Anticipated Interventions Patient/Client Instruction: Educate patient on: Condition, Plan of Care For the Purpose of:: To improve self management Therapeutic Exercise to Include: Strength training, Flexibilty training, Dynamic Lumbar Stabilization For the Purpose of:: To increase ROM, To improve muscle performance and motor function Thank you for the opportunity to evaluate your patient. For Medicare and Medicare HMO plans, please review the plan of care and approve it. It will need to be FAXED BACK to us at [phone] for Medicare purposes. For Medicare only, by signing this I certify the plan of care. Please let me know if there are questions or concerns regarding this plan of care. Physician Signature: Date:
--- NOTE | 2021-08-03 09:24 | HP.PTDCSUM ---
It has been my pleasure to treat DOUGLAS GARCIA referred by DIANNE Raymond, with the diagnosis of L knee pain for a total of 9 visit(s). Discharge Date: 08/03/21 Please see the following information for a summary of their discharge status. Subjective: Pt was climbing over a gait and fell and did something to R hip. Pt wanted to get his L knee strengthened with the race next week. Pt thinks that he is good to do PT at home from here on out with stretches and IT BAND and foam rolling (no tenderness and no pain). The only thing that he has notices that his L knee is weaker and a little more filled with fluid.. still there somewhat and not constant. He does ice and it rest helps the most. L Lateral knee pain Pain Intensity (Out of 10): 1 % Improvement: 90 Objective/Function: Issued a purple band for clam shells and inchworms. Pt report increased flexability Goal 1:: I with HEP Goal Progress: Goal Met Goal 2:: Increase core stability x 1 grade to aid with decreasing L LE pain Goal Progress: Goal Met Goal 3:: Increase L LE flexibility x 15 degrees to aid with decreasing L LE pain Goal Progress: Goal Met Plan: Inchworms, clam shells, banded one leg bridge. L LE stretching (HS's, IT band), foam roller, core strengthening, bike, and HEP Discharge Comments: DC PT to HEP If there are questions or concerns regarding this patient's physical therapy, please feel free to call me at [phone]. Thank you for the referral of this patient. Sincerely, Oralia Mooney, MPT Balance/Gait/Functional tests - Balance/Special Test Scores Lower Extremity Functional Score: 76
== END 2021-08-03 19:00 | disposition home or self-care (01) ==
LOC: PT 09:00
PROVIDERS: PCP Internal Medicine; Referring Provider Physician Assistant; Visit Provider Physician Assistant
DX: M25.562 Pain in left knee (principal)
CPT/HCPCS: 97110; 97161; 97530

== ENCOUNTER → 2021-12-03 | Outpatient (CLI) | payer OTHER, SELFPAY ==
--- NOTE | 2021-12-03 15:32 | RAD_ITS ---
STUDY: X-RAY - LUMBAR SPINE REASON FOR EXAM: Male, 41 years old. Low back pain. TECHNIQUE: 3 view(s) of the lumbar spine were obtained. COMPARISON: None FINDINGS: Normal lumbar lordosis. There is no substantial scoliosis. There is a normal alignment of the vertebrae. Mild diffuse facet sclerosis. Intervertebral disc space narrowing at L5-S1 with subchondral sclerosis and small osteophytes. The soft tissue structures are unremarkable. RAD/Lumbar Spine 2 or 3 Views IMPRESSION: Lower lumbar sacral spondylosis most marked at L5-S1. No acute abnormality, evidence of erosive changes or fusion. Electronically Signed: Agustín Bright, at 9:19 EDT ,
== END | disposition home or self-care (01) ==
LOC: RAD 15:28
PROVIDERS: PCP Internal Medicine; Referring Provider Internal Medicine; Visit Provider Internal Medicine
DX: M54.50 Low back pain, unspecified (principal)
CPT/HCPCS: 72100

== ENCOUNTER 2022-04-19 08:30 | Outpatient (RCR) | payer OTHER, SELFPAY ==
--- NOTE | 2022-01-02 10:44 | HP.PTEVAL ---
Patient's Visit Information DOUGLAS GARCIA is a 41 year old M referred to Physical Therapy by Dr. Diamante Gibbons MD with a diagnosis of LOW BACK PAIN. Date of Evaluation: 01/02/22 Physical Therapist: Neisha Long PT, Cert MDT - Visit Plan Frequency: 2-3x /Week Duration: 4-6 Weeks Plan: MODALITIES NEEDED. POSTURE CORRECTION/STRENGTHENING, INSTRUCTION IN APPROPRIATE BODY MECHANICS AND ACTIVITY MODIFICATIONS. DLS STARTING WITH A NEUTRAL SPINE PROGRESSING ROM TOLERATED. AVA LE ROM, STRETCHING AND STRENGTHENING. HEP INSTRUCTION. 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 Disability: NO. Present symptoms: LOW BACK PAIN - L>R. AVA BUTTOCK PAIN AND SOMETIMES RADIATES INTO L HIP. HAVING SOME MILD NUMBESS AND TINGLING TYPE FEELING INTERMITTENTLY IN POSTERIOR THIGHS. Present since: APPROX 2016. Pain Scale: WORST 6/10 (GETS TO THE POINT I CAN'T STAND OR EVEN SIT SOMETIMES) , LEAST 3/10. Currently: 3/10. Is it getting better, worse or staying the same: STAYING THE SAME. Commenced as a result of: NO APPARENT REASON. Symptoms at onset: PAIN STRAIGHT ACROSS LOW BACK. Worse: TWISTING, STANDING, SOMETIMES SITTING, SHOVELING manure, LIFTING. Better: NOTHING EXCEPT MAYBE CHANGE OF POSITION. MASSAGE. Disturbed sleep: YES - VERY MUCH SO - CAN ONLY STAY IN ONE POSITION ABOUT AN HOUR OR LESS. Previous history/Previous treatment: CHIROPRACTIC 2019 AND PROVIDED A LITTLE BIT OF RELIEF. CHIROPRACTIC THIS SPRING 2021 ABOUT 3 VISITS BUT DIDN'T REALLY HELP. HAS TRIED MASSAGE AND HELPED A LITTLE BIT. NO PT FOR BACK BUT CAME TO PT SPRING 2021 L KNEE BURSITIS AND IT BAND ISSUES - HELPFULL - RAN 66 MILES PAINFREE AFTER. L KNEE MENISECTOMY 2013. Treatment this episode: PRESCRIPTION LIDOCAIN PATCHES, PT CONSULT. TRIED MUSCLE RELAXERS WITHIN THE LAST YEAR - A LITTLE BIT OF BENEFIT AT NIGHT. Coughing/sneezing/straining: NEGATIVE. Gait: NORMAL - LBP BUT CAN PUSH THROUGH. Bowel or Bladder Dysfunction: LEAKING OF URINE AFTER VOIDING CONSISTENTLY - INSTRUCTED PATIENT TO MAKE PCP AWARE AND PATIETN AGREEABLE. STATES HE DID DISCUSS ED WITH PCP. DENIES SADDLE ANESTHESIA. Accidents: FALL OFF LADDER 2019. OTHER FALLS TOO. Unexplained weight loss: NO. Imaging: RECENT LOW BACK X-RAY SHOWING INCREASE IN DEGENERATION OF DISCS PER PATIENT REPORT. NO MRI. PMH/Recent major surgery: CERVICAL FUSION BY DR. THIBODEAUX APR 2020. PATIENT REPORTS HE MENTIONED HIS LBP TO DR. THIBODEAUX BUT NEEDED TO TAKE CARE OF HIS NECK FIRST. L KNEE MENISECTOMY. - Objective Sitting/Standing Posture: GOOD. NORMAL LORDOSIS AND NO RELEVENT LATERAL SHIFT. Active Correction of posture: NE BUT BETTER (DECREASED C/O L HIP PAIN) WITH PASSIVE SUPPORT IN CLINIC TODAY. Other Observations: INDEP GAIT AND TRANSFERS. Sensory deficit: AVA LE LIGHT TOUCH SENSATION GROSSLY INTACT AND SYMMETRICAL. ROM deficit: TIGHT AVA HIP FLEXORS AND QUADS L > R. Motor deficit: AVA LE'S GROSSLY 5/5 WITH MMT'ING. Reflexes: NORMAL AVA DTR'S AT PATELLA AND ACHILLES. Dural Signs: POSITIVE L LE. Lumbar mvmt loss: flex - NIL. ext - MOD. R SG - MIN. L SG - MOD. PATIENT C/O INCREASED LBP L>R WITH LUMBAR ROM TESTING ALL PLANES. Core strength: GOOD. POSTURAL STRENGTH: FAIR. Palpation: TENDERNESS WITH LIGHT PALPATION OF LOWER LUMBAR SPINE, SACRAL AND L SI JT REGIONS. TREATMENT: NEUROMUSCULAR REEDUCATION - RETRAINING OF MVMT AND POSTURE FOR SITTING, LYING AND STANDING ACTIVITIES. INSTRUCTION IN AVOIDANCE OF PERIPHERALIZATION OF SX'S. INSTRUCTED PATIENT TO SEEK MEDICAL ATTENTION RIGHT AWAY IF BOWEL OR BLADDER INCONTINENCE DEVELOPS AND TO REPORT POST MICTURITION DRIBBLING TO PCP. - Balance/Special Test Scores Oswestry Low Back Score: 12 - Goals Goal 1:: DECREASE C/O LOW BACK PAIN Goal Time Frame: 4-6 Weeks Goal 2:: IMPROVE LIFTING, SITTING, STANDING, SLEEP, SOCIAL LIFE, TRAVEL AND WORK/HOMEMAKING FUNCTION Goal Time Frame: 4-6 Weeks Goal 3:: INSTRUCT IN PROPHYLAXIS Goal Time Frame: 4-6 Weeks - Anticipated Interventions Patient/Client Instruction: Educate patient on: Condition, Plan of Care, Risk Factors For the Purpose of:: To improve self management Therapeutic Exercise to Include: Strength training, Body mechanics, Postural training, Flexibilty training, Neuromotor development, In an aquatic setting, Dynamic Lumbar Stabilization For the Purpose of:: To decrease pain, To improve muscle performance and motor function, To increase tolerance to activity/condition/position, To improve ability of physical actions for home/community/work/leisure TENS: Yes IF ES: Yes Cryotherapy (ice pack, ice massage): Yes Thermo therapy (hot pack): Yes Ultrasound (thermal/non thermal): Yes For the Purpose of:: To decrease pain, To improve nutrient delivery to tissue Thank you for the opportunity to evaluate your patient. For Medicare and Medicare HMO plans, please review the plan of care and approve it. It will need to be FAXED BACK to us at [phone] for Medicare purposes. For Medicare only, by signing this I certify the plan of care. Please let me know if there are questions or concerns regarding this plan of care. Physician Signature: Date:
--- NOTE | 2022-01-24 10:59 | HP.PTREVAL_ITS ---
Dr. Diamante Gibbons MD, It has been my pleasure to treat DOUGLAS GARCIA over the last 7 visits for LOW BACK PAIN. Please see the progress note below for an update on the physical therapy plan of care! Subjective: Pt. states that his back pain is a little better but he still continues to have issues. He reports that he still has difficulty with standing, bending over, and sleeping. He reports that he wakes up about every hour due to back pain. Pt. states that he is about 40% better since starting physical therapy. Pt. reports that he still would like to be able to do the 100 [address] race in [facility] in August and he has not tried running yet. Pt. has a follow up with his doctor on 02-25. Objective/Function: Lumbar AROM- WNL for all motions. Mild pain with all motions. LE strength- grossly 5/5 for all LE motions. Plan Plan: Focus on improving core, back, and functional lower extremity strengthening. Progress to walk to jog program as tolerated. Balance/Gait/Functional tests - Balance/Special Test Scores Oswestry Low Back Score: 14 Goals Goal 1:: DECREASE C/O LOW BACK PAIN Goal Time Frame: 4-6 Weeks Goal Progress: Progressing Goal 2:: IMPROVE LIFTING, SITTING, STANDING, SLEEP, SOCIAL LIFE, TRAVEL AND WORK/HOMEMAKING FUNCTION Goal Time Frame: 4-6 Weeks Goal Progress: Progressing Goal 3:: INSTRUCT IN PROPHYLAXIS Goal Time Frame: 4-6 Weeks Goal Progress: Progressing Goal 4:: Pt. will be able to stand for at least 1 hour with back pain at worst at 5/10. Goal Time Frame: 4-6 Weeks Goal 5:: Pt. will be able to sleep a full night with no interruption due to back pain. Goal Time Frame: 4-6 Weeks Goal 6:: Pt. will be able to jog with back pain < 3/10. Goal Time Frame: 4-6 Weeks Anticipated Interventions Patient/Client Instruction: Educate patient on: Condition, Plan of Care, Risk Factors For the Purpose of:: To improve self management Therapeutic Exercise to Include: Strength training, Body mechanics, Postural training, Flexibilty training, Neuromotor development, In an aquatic setting, Dynamic Lumbar Stabilization For the Purpose of:: To decrease pain, To improve muscle performance and motor function, To increase tolerance to activity/condition/position, To improve ability of physical actions for home/community/work/leisure TENS: Yes IF ES: Yes Cryotherapy (ice pack, ice massage): Yes Thermo therapy (hot pack): Yes Ultrasound (thermal/non thermal): Yes For the Purpose of:: To decrease pain, To improve nutrient delivery to tissue Please do not hesitate to contact me at [phone] by phone or if you have questions or concerns regarding this new plan of care! Sincerely, Renaldo Olvera
--- NOTE | 2022-03-07 10:52 | HP.PTREVAL_ITS ---
Dr. Diamante Gibbons MD, It has been my pleasure to treat DOUGLAS GARCIA over the last 13 visits for LOW BACK PAIN. Please see the progress note below for an update on the physical therapy plan of care! Subjective: PATIENT REPORTS FOLLOW UP WITH PCP LEAD TO SPECIALIST CONSULT. PRE- AUTH REC'D TO HAVE CONSULT WITH DR. THIBODEAUX. PATIENT REPORTS THAT SINCE STARTING PT HE IS NOW ABLE TO SLEEP LONGER, LESS LBP WITH SITTING TOO. STILL LIMITED WITH STANDING ON CONCRETE DUE TO LBP. PATIENT REPORTS HE FEELS HE IS BENEFITING FROM PT AND WOULD LIKE TO CONTINUE TO PROGRESS WITH PT IF POSSIBLE. PATIENT REPORTS THE CONSTANT LBP HAS LESSENED AND HIS BACK FEELS LOOSER. PATIENT DENIES INCREASED NECK PAIN WITH PHYSICAL THERAPY BUT DOES CONTINUE TO HAVE NECK ID OBLEMS. Objective/Function: PATIENT WAS SEEN TODAY FOR RE-ASSESSMENT OF PROGRESS TOWARD THE SET PT GOALS AND THE NEED FOR FURTHER PHYSICAL THERAPY VS READINESS FOR DISCHARGE. PATIENT IS A GOOD CANDIDATE TO CONTINUE PT BASED ON PROGRESS MADE AND ROOM FOR FURTHER IMPROVEMENT. UPON EXAM TODAY: Dural Signs: POSITIVE L LE (POSITIVE AT EVAL TOO). Lumbar mvmt loss: flex - NIL. ext - MIN. R SG - NIL. L SG - MIN. PATIENT C/O INCREASED LBP WITH LUMBAR EXTENSION ROM TESTING AND LSG ALSO PROVOKES MILD INCREASED LBP. OVER-ALL LUMBAR ROM IS IMPROVING. Palpation: NO ACUTE LUMBOSACRAL OR HIP TENDERNESS WITH PALPATION TODAY (TENDERNESS WITH LIGHT PALPATION AT EVAL). Plan Plan: Continue PT 2x's a week x 4-5 wks for Ther Ex progression as tolerated working toward indep gym/HEP. Patient agreeable. Posterior chain strength focus next session with progression in return to run. Focus on improving core, back, and functional lower extremity strengthening. Progress to walk to jog program as tolerated. Balance/Gait/Functional tests - Balance/Special Test Scores Oswestry Low Back Score: 7 Goals Goal 1:: DECREASE C/O LOW BACK PAIN Goal Time Frame: 4-6 Weeks Goal Progress: Progressing Goal 2:: IMPROVE LIFTING, SITTING, STANDING, SLEEP, SOCIAL LIFE, TRAVEL AND WORK/HOMEMAKING FUNCTION Goal Time Frame: 4-6 Weeks Goal Progress: Progressing Goal 3:: INSTRUCT IN PROPHYLAXIS Goal Time Frame: 4-6 Weeks Goal Progress: Progressing Goal 4:: Pt. will be able to stand for at least 1 hour with back pain at worst at 5/10. Goal Time Frame: 4-6 Weeks Goal Progress: Progressing Goal 5:: Pt. will be able to sleep a full night with no interruption due to back pain. Goal Time Frame: 4-6 Weeks Goal Progress: Progressing Goal 6:: Pt. will be able to jog with back pain < 3/10. Goal Time Frame: 4-6 Weeks Goal Progress: Progressing Anticipated Interventions Patient/Client Instruction: Educate patient on: Condition, Plan of Care, Risk Factors For the Purpose of:: To improve self management Therapeutic Exercise to Include: Strength training, Body mechanics, Postural training, Flexibilty training, Neuromotor development, In an aquatic setting, Dynamic Lumbar Stabilization For the Purpose of:: To decrease pain, To improve muscle performance and motor function, To increase tolerance to activity/condition/position, To improve ability of physical actions for home/community/work/leisure TENS: Yes IF ES: Yes Cryotherapy (ice pack, ice massage): Yes Thermo therapy (hot pack): Yes Ultrasound (thermal/non thermal): Yes For the Purpose of:: To decrease pain, To improve nutrient delivery to tissue Please do not hesitate to contact me at [phone] by phone or if you have questions or concerns regarding this new plan of care! Sincerely, Neisha Long, PT, Cert MDT
--- NOTE | 2022-04-19 09:01 | HP.PTDCSUM_ITS ---
It has been my pleasure to treat DOUGLAS GARCIA referred by Dr. Diamante Gibbons MD, with the diagnosis of LOW BACK PAIN for a total of 21 visit(s). Discharge Date: Please see the following information for a summary of their discharge status. Subjective: PATIENT REPORTS HIS SLEEP IS GOING EVEN BETTER NOW AND HE IS SLEEPING ALMOST ALL NIGHT. NOT REALLY HAVING MUCH PROBLEM WITH IT AT WORK SITTING. PATIENT REPORTS SHOVELING manure IS GOING BETTER. STILL HAVING SOME PAIN CLEANING PENS OUT BUT NOT THE CRIPPLING PAIN HE WOULD SOMETIMES GET IN THE PAST. 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 HE REPORTS HE IS GOOD MOVING AND EVEN RUNNING BUT STANDING STILL IS THE PROBLEM. PATIENT REPORTS HE HAS APPROVAL TO HAVE A CONSULT WITH DR. THIBODEAUX BUT HE HASN'T SCHEDULED IT YET. PATIENT REPORTS HIS NECK PAIN IS STILL CONSTANT. STATES HE THINKS HE IS NOTICING HIS NECK PAIN MORE NOW THAT HIS BACK IS FEELING BETTER. PATIENT STATES HE THIINKS HE CAN CONTINUE INDEP EX AT THIS TIME AND HE IS CONSIDERING DIFFERENT GYM OPTIONS. LBP Pain Intensity (Out of 10): 1 % Improvement: 60 Objective/Function: PATIENT WAS SEEN TODAY FOR RE-ASSESSMENT OF PROGRESS TOWARD THE SET PT GOALS AND THE NEED FOR FURTHER PHYSICAL THERAPY VS READINESS FOR DISCHARGE. PROGRESS IS STARTING TO plateau. PATIENT IS INDEP WITH EX PROGRAM AND APPROPRIATE FOR DISCHARGE TO INDEP EX. PATIENT IS AGREEABLE. UPON EXAM TODAY: Dural Signs: POSITIVE L LE (POSITIVE AT EVAL TOO). PATIENT C/O INCREASED LBP WITH LUMBAR EXTENSION ROM TESTING. Lumbar mvmt loss: flex - NIL. ext - MIN. R SG - NIL. L SG - MIN. STRENGTH: AVA LE STRENGTH IS 5/5 WITH MMT'ING. LAST EX SESSION 04/15/22: Bike: 5 minutes. 1a Hex Bar Deadlift: 3x6- 160,180,200#. 1b Bridge Back on Bench: 55# 3x10 each. 1c Loaded Step-up: 25#(x2) 12 3x8 each. 2a Carranza carry: 55#(x2) 50 feet x3 laps. Treadmill walk/run: 30 3.6mph/1'30 7.0-8.0mph x7 rounds (14 min) 1.46 miles Goal 1:: DECREASE C/O LOW BACK PAIN Goal Progress: Progressing Goal 2:: IMPROVE LIFTING, SITTING, STANDING, SLEEP, SOCIAL LIFE, TRAVEL AND WORK/HOMEMAKING FUNCTION Goal Progress: Progressing Goal 3:: INSTRUCT IN PROPHYLAXIS Goal Progress: Progressing Goal 4:: Pt. will be able to stand for at least 1 hour with back pain at worst at 5/10. Goal Progress: Not Progressing Goal 5:: Pt. will be able to sleep a full night with no interruption due to back pain. Goal Progress: Progressing Goal 6:: Pt. will be able to jog with back pain < 3/10. Goal Progress: Progressing Plan: D/C If there are questions or concerns regarding this patient's physical therapy, please feel free to call me at [phone]. Thank you for the referral of this patient. Sincerely, Neisha Long, PT, Cert MDT Balance/Gait/Functional tests - Balance/Special Test Scores Oswestry Low Back Score: 4
== END 2022-04-19 09:57 | disposition home or self-care (01) ==
LOC: PT 08:30
PROVIDERS: PCP Internal Medicine; Referring Provider Internal Medicine; Visit Provider Internal Medicine
DX: M54.50 Low back pain, unspecified (principal)
CPT/HCPCS: 97014; 97110; 97112; 97162; 97164; G0283

== ENCOUNTER → 2022-05-23 | Outpatient (CLI) | payer OTHER, SELFPAY ==
--- NOTE | 2022-05-23 07:43 | MRI_ITS ---
EXAM: MR LUMBAR SPINE WITHOUT INTRAVENOUS CONTRAST CLINICAL INDICATION: Lumbar DDD L5-S1 Facet Syndrome TECHNIQUE: Multiplanar and multisequence MR images of the lumbar spine without intravenous contrast. This report was created using [employer] report generation technology. COMPARISON: XR 9 FINDINGS: VERTEBRAE: Unremarkable. Vertebral body heights are preserved. Normal vertebral bodies and posterior elements. Normal alignment. No spondylolisthesis. There is preservation of the normal lumbar lordosis. SPINAL CORD: Unremarkable. Normal position and signal intensity of the conus medullaris. SOFT TISSUES: Unremarkable. DISCS/SPINAL CANAL/NEURAL FORAMINA: L1-L2: Unremarkable. Normal disc height and morphology. Normal spinal canal and lateral recesses. Normal neuroforamina. L2-L3: Unremarkable. Normal disc height and morphology. Normal spinal canal and lateral recesses. Normal neuroforamina. L3-L4: Unremarkable. Normal disc height and morphology. Normal spinal canal and lateral recesses. Normal neuroforamina. L4-L5: Unremarkable. Normal disc height and morphology. Normal spinal canal and lateral recesses. Normal neuroforamina. L5-S1: Unremarkable. Normal disc height and morphology. Normal spinal canal and lateral recesses. Normal neuroforamina. MRI/Spine Lumbar (Routine) IMPRESSION: Unremarkable MRI of the lumbar spine. Electronically Signed: Jaskaran Aguilar MD at 21:37 EDT Reading Location ID and State: [id number] / [place] , Service support ,
== END | disposition home or self-care (01) ==
PROVIDERS: PCP Internal Medicine; Visit Provider Orthopaedic Surgery
DX: M51.37 Other intervertebral disc degeneration, lumbosacral region (principal); M47.816 Spondylosis without myelopathy or radiculopathy, lumbar region
CPT/HCPCS: 72148

== ENCOUNTER → 2022-09-23 | Outpatient (CLI) | payer OTHER, SELFPAY ==
[2022-09-23 10:13] LABS: Absolute Lymphocyte Count 1.48 X10^3/uL (0.83-4.51); Absolute Neutrophil Count 2.2 X10^3/uL (2.0-7.7); Basophil# 0.02 X10^3/uL; Basophil% 0.5 % (0-1); Eosinophil# 0.14 X10^3/uL; Eosinophils% 3.3 % (0-5); Hematocrit 46.7 % (40-54); Hemoglobin 15.5 g/dL (13.0-16.5); Lymphocyte # 1.48 X10^3/ul (0.83-4.51); Lymphocyte % 34.8 % (19-41); Mean Corp Hgb Conc 33.2 g/dL (32-36); Mean Corpuscular Hgb 30.2 pg (27.0-32.0); Mean Corpuscular Volume 90.9 fL (80-94); Mean Platelet Vol. 11.2 fl (6.2-12.0); Monocyte# 0.41 X10^3/uL; Monocyte% 9.6 % (0-10); NRBC Flagged by Analyzer 0 % (0-5); Neutrophil # 2.19 X10^3/uL (2.7-7.7); Neutrophil % 51.6 % (47-70); Platelet Count 196 K/mm3 (150-450); RBC Distribution Width CV 12.6 % (11.6-14.6); RBC Distribution Width SD 41.4 fl (35.1-43.9); Red Blood Count 5.14 M/mm3 (4.6-6.2); White Blood Count 4.3 K/mm3 (4.4-11.0)
[2022-09-23 10:45] LABS: Vitamin D,25 Hydroxy 36.3 ng/mL
[2022-09-23 11:16] LABS: ALB/GLOB Ratio 1.1 RATIO (0.9-2.4); AST(SGOT) 16 U/L (15-37); Alanine Aminotransfer ALT/SGPT 25 U/L (16-61); Albumin, Serum 3.7 g/dL (3.2-5.0); Alkaline Phosphatase 73 U/L (45-117); Anion Gap 3 (5-15); BUN 10 mg/dL (7-18); BUN/Creat Ratio 10.6 RATIO (10-20); Calcium,Total 8.9 mg/dL (8.5-10.1); Chloride 106 mmol/L (98-107); Cholesterol 217 mg/dL (200); Creatinine, Serum 0.95 mg/dL (0.70-1.30); EST Glomerular Filtration Rate 93 mL/min (>60); Est Glom Filt Rate - Afr Amer 112 mL/min (>60); Globulin 3.3 g/dL (2.2-4.2); Glucose 85 mg/dL (74-106); High Density Lipoprotein 50 mg/dL; PSA,Total - Annual Screen 0.51 ng/mL (0.00-4.00); Potassium 4.2 mmol/L (3.5-5.1); Sodium Level 138 mmol/L (136-145); Triglycerides 192 mg/dL; Very Low Density Lipoprotein 38 mg/dL (5-40)
== END | disposition home or self-care (01) ==
PROVIDERS: PCP Internal Medicine; Referring Provider Internal Medicine; Visit Provider Internal Medicine
DX: Z00.00 Encounter for general adult medical examination without abnormal findings (principal); E55.9 Vitamin D deficiency, unspecified; Z12.5 Encounter for screening for malignant neoplasm of prostate
CPT/HCPCS: 36415; 80053; 80061; 82306; 84153; 85025; G0103

== ENCOUNTER 2023-04-09 15:41 | Outpatient (RCR) | payer OTHER, SELFPAY ==
--- NOTE | 2023-04-09 16:27 | HP.PTEVAL_ITS ---
Patient's Visit Information Visit Information Visit Information: DOUGLAS GARCIA is a 42 year old M referred to Physical Therapy by Dr. Diamante Gibbons MD with a diagnosis of dizzyness. Date of Evaluation: 04/09/23 Physical Therapist: Graeme Mcgrath, DPT, OCS, CSCS Visit Plan Frequency: 1x/Week Duration: 2-4 Weeks Plan: weekly as needed for progression of adpatation(VOR H today) and monitor positional. pt is 97% better today compared to at doctor visit. Subjective Subjective: About 5 weeks ago started feeling cloudy and not himself. Progressi vely worsened and felt sick. Went to ER 03/02 adn diagnosed with vertigo. Spinning and nauseous and stumbly. Sat in recliner that week and felt drunk. They said positional vertigo. Now has it when he lies down flat and less duration. Feels pretty normal most of the time now outside of bed. Daniele maneuver did help early on. Meclizine was given and it did not help. Sleep is still interrupted a little bit but had discectomy in neck and hard time sleeping anyway. 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 Basic ADLs are all no problem, sometimes unsteady. Work is his hobby. 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 Objective Objective: Walks normal adn I into PT, steps reciprocal without rail, transfers bed adn chair I. cervical and UE AROM WFL and without pain today. - B hallpike lalo - roll test Oculomotor: no nystagmus with gaze or head shake - skew eye deviation - ocular tilt - head thrust, maybe slightly positive L. DVA 5 lines from SVA pursuit and saccades are normal VOR symptomatic slightly with H 30 seconds. Balance/Special Test Scores Functional Gait Assessment Score: 29 % Disability: 3.3400 CATSIB Score (Max score 120 seconds): 120 Dizziness Score: 32 Goals Goal 1:: Dizzyness 100% abolished Goal Time Frame: 2-4 Weeks Goal 2:: DHI socre 0 Goal Time Frame: 2-4 Weeks Goal 3:: roll in bed without hesitation Goal Time Frame: 2-4 Weeks Rehabilitation Potential Physical Therapy Diagnosis: possibly unilateral hypofucntion causing some dizzyness with some ADLS, bed. Rehabilitation Potential: Good Anticipated Interventions Patient/Client Instruction: Educate patient on: Condition and Plan of Care For the Purpose of:: To increase tolerance to activity/condition/position Comment: vestibular For the Purpose of:: To increase tolerance to activity/condition/position Text: Thank you for the opportunity to evaluate your patient. For Medicare and Medicare HMO plans, please review the plan of care and approve it. It will need to be FAXED BACK to us at [phone] for Medicare purposes. For Medicare only, by signing this I certify the plan of care. Please let me know if there are questions or concerns regarding this plan of care. Physician Signature: Date:
--- NOTE | 2023-05-30 14:51 | HP.PT.NRP ---
Patient Information Patient Information: DOUGLAS GARCIA was seen in my office for initial evaluation on 04/09/23. The following Plan of Care was established for this patient: POC Established Initial Frequency: 1x/Week Initial Duration: 2-4 Weeks Anticipated Interventions Patient/Client Instruction: Educate patient on: Condition and Plan of Care For the Purpose of:: To increase tolerance to activity/condition/position For the Purpose of:: To increase tolerance to activity/condition/position Last Seen Last Seen: This patient was last seen in our office 04/09/23. Pertinent comments regarding their Physical therapy will appear below: Pt seen for IE and POC established. He did not return for any visits. At this point, it has been over 6 weeks and I will discontinue due to nonattendance. At this point I will be discontinuing this patient from physical therapy. I would be happy to see this patient again in the future if found appropriate by the physician. Thank you! Graeme Mcgrath, DPT, OCS, CSCS Balance/Gait/Functional tests Balance/Special Test Scores Functional Gait Assessment Score: 29 % Disability: 3.3400 CATSIB Score (Max score 120 seconds): 120 Dizziness Score: 32
== END 2023-04-09 19:00 | disposition home or self-care (01) ==
LOC: PT 15:41
PROVIDERS: PCP Internal Medicine; Visit Provider Internal Medicine
DX: R42 Dizziness and giddiness (principal)
CPT/HCPCS: 97110; 97161

== ENCOUNTER → 2023-06-19 | Outpatient (CLI) | payer OTHER, SELFPAY ==
--- NOTE | 2023-06-19 13:20 | RAD_ITS ---
STUDY: X-RAY - LUMBAR SPINE REASON FOR EXAM: Male, 42 years old. Spondylosis without myelopathy or radiculopathy, lumbar region TECHNIQUE: 3 view(s) of the lumbar spine were obtained. COMPARISON: None FINDINGS: Normal lumbar lordosis. There is no substantial scoliosis. There is a normal alignment of the vertebrae. Normal vertebral bodies and endplates. Normal disc space heights. The soft tissue structures are unremarkable. RAD/Lumbar Spine 2 or 3 Views IMPRESSION: Normal x-ray examination of the lumbar spine. Electronically Signed: Rakan Man DO at 23:03 EDT Reading Location ID and State: [facility] / [place] Tel [phone], Service support ,
== END | disposition home or self-care (01) ==
PROVIDERS: PCP Internal Medicine; Referring Provider Anesthesiology Pain Medicine; Visit Provider Anesthesiology Pain Medicine
DX: M47.816 Spondylosis without myelopathy or radiculopathy, lumbar region (principal)
CPT/HCPCS: 72100